=== PATIENT | male | born 1965 | race Caucasian/White ===

== ENCOUNTER 2018-12-14 18:29 | Emergency (ER) | payer SELFPAY ==
[2018-12-14 18:47] VITALS: BP 154/86; PULSE 69; TEMP 97.8; BMI 29.6
--- NOTE | 2018-12-14 19:41 | PDOC ---
Attending Attestation - HPI HPI: This patient is a 53 year old male with PMHx of HTN, NIDDM, HLD, who presents to ED with 3 weeks of epigastric pain. Patient was seen by his primary doctor on 12/05 and was given a prescription for Bentyl. Patient reports the Bentyl has not worked as he's been taking the medication after he eats. Patient states that he has had this pain before and gets it every year but it has never lasted this long before. Patient states the pain is cramp-like, localized in epigastric area, does not radiate, unaware of any exacerbating or alleviating factors, rates 9/10, associated with nausea and early satiety. Also endorses urinary frequency and slight dysuria, frontal headache for which he attributes to not eating or drinking well. He was seen here a yesterday for similar complaints. Denies any vomit, diarrhea, constipation, blood in stool, fevers, chills, chest pain, SOB, hematuria, syncope, pain radiating to the back, flank pain. PMD:Vahe Kearney MD PMH: see hpi PSH: none Meds: metformin, losartan, dicyclomine Allergies: nkda Social: denies 12/14/18 21:27 Patient has dup chart from 12/13/18 - Physicial Exam PE: GENERAL: Awake, alert, and fully oriented, in no acute distress HEAD: No signs of trauma EYES: PERRLA, EOMI, sclera anicteric, conjunctiva clear LUNGS: Breath sounds equal, clear to auscultation bilaterally. No wheezes, and no crackles HEART: Regular rate and rhythm, normal S1 and S2, no murmurs, rubs or gallops ABDOMEN: Soft, nontender, normoactive bowel sounds. No guarding, no rebound. No masses EXTREMITIES: Normal range of motion, no edema. No clubbing or cyanosis. No cords, erythema, or tenderness NEUROLOGICAL: Cranial nerves II through XII grossly intact. Normal speech, normal gait SKIN: Warm, Dry, normal turgor, no rashes or lesions noted. 12/14/18 21:26 <Theresa Lozano - Last Filed: 12/14/18 21:27> - Resident Resident Name: Renée Lorenzana - Medical Decision Making 12/14/18 23:16 Pt presents to the ED complaining of epigastric pain that has been persistent for three weeks. Denies chest pain, shortness of breath, nausea or vomiting. History of multiple prior episodes of similar pain which resolved spontaneously in the past. Labs show troponin of 0.06. Labs drawn yesterday under a different MR showed troponin of 0.05. Will check repeat troponin and admit if rising. Will discharge home with cardiology and GI follow up if decreasing. 12/14/18 23:21 <Lyric Driver - Last Filed: 12/14/18 23:22> Attestations - Attestations 12/14/18 21:26 Documentation prepared by Theresa Lozano, acting as medical imaging specialist for Lyric Driver MD. <Theresa Lozano - Last Filed: 12/14/18 21:27>
[2018-12-14] MEDS ORDERED: MAG HYDROX/AL HYDROX/SIMETH 30 ML UNIT-DOSE CUP PO ONE (19:59)
[2018-12-14] MEDS ORDERED: ONDANSETRON 4 MG/2 ML VIAL IVPB ONE (19:59)
[2018-12-14] MEDS ORDERED: ACETAMINOPHEN 1000 MG/100 ML VIAL (NON FORMULARY) IVPB ONE (19:59)
[2018-12-14] MEDS ORDERED: FAMOTIDINE 20 MG/50 ML IVPB 20 MG/50 ML MG IVPB ONE ×2 (19:59→20:13)
--- NOTE | 2018-12-14 19:59 | PDOC ---
History of Present Illness - General Chief Complaint: Pain, Acute Stated Complaint: NAUSEA/HEADACHE Time Seen by Provider: 12/14/18 19:23 History Source: Patient Exam Limitations: Language Barrier - History of Present Illness Travel History: No Initial Comments: 12/14/18 19:55 Pt is a 53yo M with PMH of HTN, NIDDM presenting to ED with 2 weeks of epigastric pain and nausea. Pt has had this pain before and gets it every year but it has never lasted this long before. Pt states the pain is in the epigastric area, does not radiate, 9/10, cramping, associated with nausea and early satiety. He feels the need to vomit to relieve the pain but he has not vomited. Also endorses urinary frequency and slight dysuria. Also is experiencing a frontal headache for which he attributes to not eating or drinking well. He denies diarrhea, constipation, blood in stool, fevers, chills , chest pain, SOB, hematuria, syncope, pain radiating to the back, flank pain. He was seen here a few days ago for similar complaints. PMD: [place] PMH: see hpi PSH: none Meds: metformin, losartan, dicyclomine Allergies: nkda Social: denies Past History - Past Medical History Allergies/Adverse Reactions: Allergies Allergy/AdvReac Type Severity Reaction Status Date / Time No Known Allergies Allergy Verified 12/14/18 18:43 Home Medications: Ambulatory Orders Losartan Potassium 100 mg PO DAILY 12/14/18 metFORMIN HCL [Metformin HCl] 500 mg PO BID 12/14/18 COPD: No HTN: Yes - Suicide/Smoking/Psychosocial Hx Smoking Status: No Smoking History: Never smoked Years of Tobacco Use: 0 Number of Cigarettes Smoked Daily: 0 Cigars Per Day: 0 Review of Systems - Review of Systems Constitutional: No: Chills, Fever, Weakness HEENTM: No: Symptoms Reported Respiratory: No: Cough, Shortness of Breath Cardiac (ROS): Yes: Lightheadedness. No: Chest Pain, Palpitations, Syncope ABD/GI: Yes: See HPI, Nausea, Abdominal cramping. No: Constipated, Diarrhea, Difficulty Swallowing, Rectal Bleeding, Vomiting, Tarry Stools : Yes: Dysuria, Frequency. No: Flank Pain, Hematuria, Incontinence, Urgency, Testicular Pain Musculoskeletal: No: Symptoms Reported Integumentary: No: Symptoms Reported Neurological: Yes: Headache. No: Numbness, Tingling, Tremors, Weakness *Physical Exam - Vital Signs Last Vital Signs Temp Pulse Resp BP Pulse Ox 97.8 F 69 19 154/86 98 12/14/18 18:43 03 18:43 12/14/18 18:43 12/14/18 18:43 12/14/18 18:43 - Physical Exam General Appearance: Yes: Nourished, Appropriately Dressed. No: Apparent Distress HEENT: positive: EOMI, [place], Pharynx Normal Neck: positive: Trachea midline, Supple. negative: Lymphadenopathy (R), Lymphadenopathy (L) Respiratory/Chest: positive: Lungs Clear, Normal Breath Sounds. negative: Crackles, Rales, Rhonchi, Stridor, Wheezing Cardiovascular: positive: Regular Rhythm, Regular Rate, S1, S2. negative: Edema , JVD, Murmur Vascular Pulses: Carotid (R): 2+, Carotid (L): 2+, Dorsalis-Pedis (R): 2+, Doralis-Pedis (L): 2+ Gastrointestinal/Abdominal: positive: Normal Bowel Sounds, Soft. negative: Distended, Guarding, Rebound, Tenderness Musculoskeletal: negative: CVA Tenderness (R), CVA Tenderness (L) Extremity: positive: Normal Capillary Refill, Normal Inspection Integumentary: positive: Normal Color, Dry, Warm Neurologic: positive: cleaning technician II-XII NML intact, Fully Oriented, Alert, Normal Mood/ Affect, Normal Response, Motor Strength 5/5 Moderate Sedation - Procedure Monitoring Vital Signs: Procedure Monitoring Vital Signs Temperature 97.8 F 12/14/18 18:43 Pulse Rate 69 12/14/18 18:43 Respiratory Rate 19 12/14/18 18:43 Blood Pressure 154/86 12/14/18 18:43 O2 Sat by Pulse Oximetry (%) 98 12/14/18 18:43 ED Treatment Course - LABORATORY CBC & Chemistry Diagram: 12/14/18 19:50 12/14/18 19:50 Medical Decision Making - Medical Decision Making 12/14/18 19:59 Pt is a 53yo M with PMH of HTN, NIDDM presenting to ED with 2 weeks of epigastric pain and nausea. Pt has had this pain before and gets it every year but it has never lasted this long before. Pt states the pain is in the epigastric area, does not radiate, 9/10, cramping, associated with nausea and early satiety. He feels the need to vomit to relieve the pain but he has not vomited. Also endorses urinary frequency and slight dysuria. Also is experiencing a frontal headache for which he attributes to not eating or drinking well. He denies diarrhea, constipation, blood in stool, fevers, chills , chest pain, SOB, hematuria, syncope, pain radiating to the back. He was seen here a few days ago for similar complaints. Vitals: wnl PE: No tenderness, no pulsatile mass Low suspicions for pancreatitis, cholecystitis, colitis, nephrolithiasis. Low suspicion for AAA, Dissection and PE given normal vital signs, no pulsatile mass, no tearing chest/back pain, no dyspnea, pain is similar to prior episodes. Will order trop and ekg given pt age, h/o dm and htn -cbc, cmp, lipase, trop -ekg -maalox, tylenol, pepcid, zofran. Labs significant for trop being 0.06. Pt states he was here 12/12 and has paperwork showing that he was although electronic record through this chart is not seen. Trop 12/12 was 0.05. Pt is denying chest pain, pleuritic chest pain, sob, leg swelling, dyspnea on exertion. Will repeat trop in 3 hours. EKG shows inverted t in lead 3 with inverted p. No other t wave inversions. NSR. No DAVID or depressions. Upon drawing repeat trop, pt states he was feeling better. Repeat trop 0.05. Pt not having chest pain and has not been having chest pains. Pain is similar to prior episodes and is just not getting better. However pt feels better now. Does not need admission to pursue troponin at this time. Will refer to cardiology. Will also refer to GI for symptoms. Pt understands return precautions. Will DC home. *DC/Admit/Observation/Transfer Diagnosis at time of Disposition: Epigastric pain - Discharge Dispostion Disposition: HOME Condition at time of disposition: Good Decision to Admit order: No - Referrals Referrals: Vahe Kearney MD [Non Staff, Medical] - Odette Shirley DO [Staff Physician] - Jarek Munoz MD [Staff Physician] - - Patient Instructions Printed Discharge Instructions: DI for Atypical Chest Pain, DI for Epigastric Pain Additional Instructions: You were seen in the emergency room for epigastric abdominal pain. This may be due to espogeal spasms. The lab tests show that an enzyme released by the heart is a little high. You need to see a car dumper operator helper. A referral was sent to Dr. Munoz . I highly suggest that you call and make an appointment. You should tell them that you were seen in the emergency room and you were referred to see a car dumper operator helper. Please remember to do this, it is important. You should also see a GI doctor (for the stomach). Dr. Shirley . Make sure you make an appointment with Dr. Peters this week. Come back to the emergency room if you start to develop chest pain, you feel short of breath, you break out into a sweat, you have pain in the chest that goes to your shoulders, you start vomiting blood or if any new concerning symptom develops. Thank you - Post Discharge Activity
[2018-12-14] MEDS ORDERED: SODIUM CHLORIDE 1,000 ML IV STA (20:00)
[2018-12-14 20:04] LABS: BASO % 0.5 % (0-2.0); EOS % 2.6 % (0-4.5); HEMATOCRIT 40.4 % (35.4-49); HEMOGLOBIN 14.4 GM/dL (11.7-16.9); LYMPH % 30.9 % (8-40); MCH 29.2 pg (25.7-33.7); MCHC 35.7 g/dl (32.0-35.9); MEAN CELL VOLUME 81.8 fl (80-96); MEAN PLT VOLUME 8.3 fl (7.5-11.1); PLATELET COUNT 280 K/MM3 (134-434); RBC 4.93 M/mm3 (4.00-5.60); WHITE BLOOD COUNT 5.8 K/mm3 (4.0-10.0)
[2018-12-14] MEDS ORDERED: MAG HYDROX/AL HYDROX/SIMETH 30 ML UNIT-DOSE CUP ONE (20:13)
[2018-12-14] MEDS ORDERED: ACETAMINOPHEN INJECTION 100 ML IVPB ONE (20:13)
[2018-12-14] MEDS ORDERED: ONDANSETRON 4 MG/2 ML VIAL ONE (20:13)
[2018-12-14 20:26] LABS: ALBUMIN 4.6 g/dl (3.4-5.0); ALK PHOS 112 U/L (45-117); ANION GAP 10 MMOL/L (8-16); BILIRUBIN,TOTAL 0.6 mg/dL (0.2-1); BLOOD UREA NITROGEN 11 mg/dL (7-18); CALCIUM 8.7 mg/dL (8.5-10.1); CHLORIDE 106 mmol/L (98-107); CO2 24 mmol/L (21-32); CREATININE 0.8 mg/dL (0.55-1.3); GLUCOSE,RANDOM 80 mg/dL (74-106); SGOT/AST 38 U/L (15-37); SGPT/ALT 58 U/L (13-61); SODIUM 140 mmol/L (136-145); TOT PROT 7.7 g/dl (6.4-8.2)
[2018-12-14 20:59] LABS: URINE APPEARANCE CLEAR; URINE BILIRUBIN NEGATIVE (<2.0 mg/dL); URINE COLOR LTYELLOW; URINE GLUCOSE (UA) NEGATIVE (NEGATIVE); URINE KETONE NEGATIVE (NEGATIVE); URINE LEUK ESTERASE NEGATIVE (NEGATIVE); URINE NITRITE NEGATIVE (NEGATIVE); URINE PROTEIN NEGATIVE (NEGATIVE); URINE UROBILINOGEN NEGATIVE mg/dL (0.2-1.0)
--- NOTE | 2018-12-17 13:51 | EKG ---
Test Reason : Blood Pressure : / mmHG Vent. Rate : 066 BPM Atrial Rate : 066 BPM P-R Int : 154 ms QRS Dur : 096 ms QT Int : 396 ms P-R-T Axes : 000 -12 000 degrees QTc Int : 415 ms NORMAL SINUS RHYTHM INCOMPLETE RIGHT BUNDLE BRANCH BLOCK INFERIOR INFARCT , AGE UNDETERMINED ABNORMAL ECG NO PREVIOUS ECGS AVAILABLE Confirmed by MD Ricardo, Anthony ([id number]) on 12/17/2018 1:51:34 PM Referred By: Confirmed By:Anthony Silva MD
== END 2018-12-15 00:41 | disposition home or self-care (01) ==
LOC: JER 18:29
PROC: 3E033GC Introduction of Other Therapeutic Substance into Peripheral Vein, Percutaneous Approach (ICD-10-PCS; principal; 2018-12-14)
PROC: 3E033GC Introduction of Other Therapeutic Substance into Peripheral Vein, Percutaneous Approach (ICD-10-PCS; 2018-12-14)
PROC: 3E033NZ Introduction of Analgesics, Hypnotics, Sedatives into Peripheral Vein, Percutaneous Approach (ICD-10-PCS; 2018-12-14)
DX: R10.13 Epigastric pain (principal); I10 Essential (primary) hypertension; E78.5 Hyperlipidemia, unspecified; E11.9 Type 2 diabetes mellitus without complications; Z79.84 Long term (current) use of oral hypoglycemic drugs
CPT/HCPCS: 36415; 80053; 81003; 83690; 84484; 85025; 93005; 93010; 99281-25; J0131; J7030

== ENCOUNTER 2022-06-16 17:14 | Emergency (ER) | payer SELFPAY ==
[2022-06-16 17:29] VITALS: RESP 18; BMI 29.9
[2022-06-16] MEDS ORDERED: ONDANSETRON 4 MG/2 ML VIAL IVPUSH ONE (18:50)
[2022-06-16] MEDS ORDERED: ONDANSETRON 4 MG/2 ML VIAL ONE (19:38)
[2022-06-16 21:07] LABS: BASO % 0.4 % (0-2.0); EOS % 2.1 % (0-4.5); HEMATOCRIT 40.9 % (35.4-49); HEMOGLOBIN 13.9 GM/dL (11.7-16.9); LYMPH % 17.7 % (8-40); MCH 27.8 pg (25.7-33.7); MEAN CELL VOLUME 81.6 fl (80-96); MEAN PLT VOLUME 9.5 fl (7.5-11.1); MONO % 10.1 % (3.8-10.2); NEUT % 69.7 % (42.8-82.8); PLATELET COUNT 252 10^3/uL (134-434); RBC 5.01 M/mm3 (4.00-5.60); RDW 13.2 % (11.9-15.9); WHITE BLOOD COUNT 8.3 K/mm3 (4.0-10.0)
[2022-06-16 21:29] LABS: CHLORIDE 106 mmol/L (98-107); SODIUM 141 mmol/L (136-145)
[2022-06-16 21:31] LABS: ALBUMIN 3.9 g/dl (3.4-5.0); ANION GAP 7 MMOL/L (8-16); BLOOD UREA NITROGEN 22.6 mg/dL (7-18); CALCIUM 8.7 mg/dL (8.5-10.1); CO2 29 mmol/L (21-32); GLUCOSE,RANDOM 85 mg/dL (74-106)
[2022-06-16 21:34] LABS: CREATININE 0.8 mg/dL (0.55-1.3); SGOT/AST 30 U/L (15-37); SGPT/ALT 45 U/L (13-61)
[2022-06-16 21:36] LABS: BILIRUBIN,TOTAL 0.6 mg/dL (0.2-1); TOT PROT 7.3 g/dl (6.4-8.2)
[2022-06-16 21:37] LABS: ALK PHOS 113 U/L (45-117)
[2022-06-16] MEDS ORDERED: ASPIRIN 81 MG CHEWABLE TABLETS PO ONE (21:44)
[2022-06-16] MEDS ORDERED: ASPIRIN 81 MG CHEWABLE TABLETS ONE (21:46)
[2022-06-16] MEDS ORDERED: CLOPIDOGREL BISULFATE 300 MG TABLET PO ONE (21:50)
[2022-06-16] MEDS ORDERED: ENOXAPARIN NA (PORCINE) 80 MG/0.8 ML DISP.SYRIN SQ ONE ×2 (21:51→21:53)
[2022-06-16] MEDS ORDERED: CLOPIDOGREL BISULFATE 300 MG TABLET ONE (21:53)
[2022-06-17] MEDS ORDERED: SODIUM CHLORIDE 0.9% 500 ML INFUS.BAG IV ONE
[2022-06-17] MEDS ORDERED: HEPARIN NA (PORCINE) 5,000 UNITS/ML 1ML VIAL IVPUSH PRN ×2 (00:01)
[2022-06-17] MEDS ORDERED: HEPARIN INFUSION - 25,000 UNITS/500 ML INFUS.BAG IVPB SCH (00:15)
[2022-06-17 00:17] VITALS: BP 145/78
[2022-06-17] MEDS ORDERED: HEPARIN INFUSION - 25,000 UNITS/500 ML INFUS.BAG IVPB ONE (00:20)
[2022-06-17] MEDS ORDERED: HEPARIN NA (PORCINE) 5,000 UNITS/ML 1ML VIAL ONE (00:20)
[2022-06-17 00:44] VITALS: PULSE 53; TEMP 98.6
== END 2022-06-17 00:46 | disposition short-term general hospital (02) ==
LOC: JER 17:14
PROC: 3E033GC Introduction of Other Therapeutic Substance into Peripheral Vein, Percutaneous Approach (ICD-10-PCS; principal; 2022-06-16)
PROC: 3E033GC Introduction of Other Therapeutic Substance into Peripheral Vein, Percutaneous Approach (ICD-10-PCS; 2022-06-16)
PROC: 3E033GC Introduction of Other Therapeutic Substance into Peripheral Vein, Percutaneous Approach (ICD-10-PCS; 2022-06-16)
PROC: 3E033GC Introduction of Other Therapeutic Substance into Peripheral Vein, Percutaneous Approach (ICD-10-PCS; 2022-06-16)
DX: R55 Syncope and collapse (principal)
CPT/HCPCS: 0241U-QW; 36415; 70450-TC; 71046-TC-FY; 72125-TC; 80053; 82962; 84484; 85025; 93005; 93010; 99285-25; J1644

== ENCOUNTER 2022-11-10 05:19 | Observation (INO) | payer OTHER ==
[2022-11-10 05:44] VITALS: BMI 28.1
[2022-11-10] MEDS ORDERED: SODIUM CHLORIDE 0.9% 500 ML INFUS.BAG IV ONE (06:29)
[2022-11-10 06:47] LABS: VENOUS BASE EXCESS -2.5 mmol/L (-2-2); VENOUS O2 SATURATION 83.8 % (70-80); VENOUS PH 7.368 (7.310-7.410)
[2022-11-10 06:50] LABS: BASO % 0.7 % (0-2.0); EOS % 6.1 % (0-4.5); HEMATOCRIT 42.2 % (35.4-49); HEMOGLOBIN 14.7 GM/dL (11.7-16.9); LYMPH % 23.5 % (8-40); MCH 26.6 pg (25.7-33.7); MCHC 34.8 g/dl (32.0-35.9); MEAN CELL VOLUME 76.6 fl (80-96); MEAN PLT VOLUME 9.6 fl (7.5-11.1); MONO % 8.9 % (3.8-10.2); NEUT % 60.8 % (42.8-82.8); PLATELET COUNT 232 10^3/uL (134-434); RBC 5.51 M/mm3 (4.00-5.60); RDW 13.2 % (11.9-15.9); WHITE BLOOD COUNT 6.5 K/mm3 (4.0-10.0)
[2022-11-10 07:16] LABS: BLOOD UREA NITROGEN 14.7 mg/dL (7-18)
[2022-11-10 07:19] LABS: CREATININE 0.9 mg/dL (0.55-1.3); PHOSPHOROUS 4.1 mg/dL (2.5-4.9)
[2022-11-10 07:20] LABS: TOT PROT 7.2 g/dl (6.4-8.2)
[2022-11-10] MEDS ORDERED: LACTATED RINGERS SOLUTION 1000 ML INFUS.BAG IV ONE (07:26)
[2022-11-10 09:53] LABS: URINE APPEARANCE CLEAR; URINE BILIRUBIN NEGATIVE (NEGATIVE); URINE COLOR YELLOW; URINE GLUCOSE (UA) 3+ (NEGATIVE); URINE KETONE 1+ (NEGATIVE); URINE LEUK ESTERASE NEGATIVE (NEGATIVE); URINE NITRITE NEGATIVE (NEGATIVE); URINE PROTEIN NEGATIVE (NEGATIVE); URINE UROBILINOGEN 0.2 mg/dL (0.2-1.0)
[2022-11-10] MEDS ORDERED: LOSARTAN POTASSIUM 50 MG TABLET ONE (13:51)
[2022-11-10] MEDS: LOSARTAN POTASSIUM 50 MG TABLET PO SCH (14:05)
[2022-11-10] MEDS ORDERED: CLOPIDOGREL BISULFATE 75 MG TABLET (FP) PO ONE (15:36)
[2022-11-10] MEDS ORDERED: ASPIRIN COATED 81 MG TABLET.EC ONE (16:11)
[2022-11-10] MEDS ORDERED: CLOPIDOGREL BISULFATE 75 MG TABLET (FP) ONE (16:11)
[2022-11-10] MEDS: ASPIRIN COATED 81 MG TABLET.EC PO SCH (16:14)
[2022-11-10] MEDS ORDERED: SODIUM CHLORIDE 1,000 ML IV SCH ×2 (18:15→18:22)
[2022-11-10] MEDS ORDERED: ATORVASTATIN CA 80 MG TABLET (FP) PO SCH (22:00)
[2022-11-11] MEDS: GABAPENTIN 300 MG CAPSULE PO SCH ×4 (00:33→23:44)
[2022-11-11] MEDS ORDERED: ATORVASTATIN CA 40 MG TABLET (FP) ONE (04:31)
[2022-11-11] MEDS ORDERED: GABAPENTIN 300 MG CAPSULE ONE ×4 (04:32→23:35)
[2022-11-11] MEDS: INSULIN SLIDING SCALE (NOVOLOG) 1 VIAL SQ SCH ×5 (04:43→23:44)
[2022-11-11 07:24] LABS: BASO % 0.9 % (0-2.0); EOS % 6.7 % (0-4.5); HEMATOCRIT 37.9 % (35.4-49); HEMOGLOBIN 13.1 GM/dL (11.7-16.9); LYMPH % 35.6 % (8-40); MCH 26.3 pg (25.7-33.7); MCHC 34.4 g/dl (32.0-35.9); MEAN CELL VOLUME 76.4 fl (80-96); MEAN PLT VOLUME 9.1 fl (7.5-11.1); MONO % 9.7 % (3.8-10.2); NEUT % 47.1 % (42.8-82.8); PLATELET COUNT 213 10^3/uL (134-434); RBC 4.96 M/mm3 (4.00-5.60); RDW 13.8 % (11.9-15.9); WHITE BLOOD COUNT 5.7 K/mm3 (4.0-10.0)
[2022-11-11 07:53] LABS: BLOOD UREA NITROGEN 13.6 mg/dL (7-18); CALCIUM 7.8 mg/dL (8.5-10.1); MAGNESIUM 1.8 mg/dL (1.8-2.4)
[2022-11-11 07:54] LABS: ALBUMIN 3.2 g/dl (3.4-5.0)
[2022-11-11 07:57] LABS: CREATININE 0.7 mg/dL (0.55-1.3); PHOSPHOROUS 2.9 mg/dL (2.5-4.9); TOT PROT 5.9 g/dl (6.4-8.2)
[2022-11-11] MEDS ORDERED: CLOPIDOGREL BISULFATE 75 MG TABLET (FP) ONE (09:42)
[2022-11-11] MEDS ORDERED: LOSARTAN POTASSIUM 50 MG TABLET ONE (09:42)
[2022-11-11] MEDS ORDERED: ASPIRIN COATED 81 MG TABLET.EC ONE (09:42)
[2022-11-11] MEDS: CLOPIDOGREL BISULFATE 75 MG TABLET (FP) PO SCH (10:15)
[2022-11-11] MEDS: ASPIRIN COATED 81 MG TABLET.EC PO SCH ×2 (10:15)
[2022-11-11] MEDS: LOSARTAN POTASSIUM 50 MG TABLET PO SCH (10:15)
[2022-11-11] MEDS: glyBURIDE 5 MG TABLET PO SCH ×2 (10:15→17:36)
[2022-11-11] MEDS ORDERED: SODIUM CHLORIDE 1,000 ML IV SCH (13:27)
[2022-11-11] MEDS ORDERED: DEXTROSE 50%-WATER - 25 GM/50 ML VIAL IVPUSH PRN (13:35)
[2022-11-11] MEDS ORDERED: LOSARTAN POTASSIUM 50 MG TABLET PO SCH (13:39)
[2022-11-11] MEDS: metFORMIN HCL 500 MG TABLET (FP) PO SCH (17:36)
[2022-11-11] MEDS ORDERED: metFORMIN HCL 500 MG TABLET (FP) ONE (17:38)
[2022-11-11] MEDS ORDERED: EZETIMIBE 10 MG TABLET (FP) PO SCH (22:00)
[2022-11-12] MEDS: GABAPENTIN 300 MG CAPSULE PO SCH (06:34)
[2022-11-12] MEDS: metFORMIN HCL 500 MG TABLET (FP) PO SCH (06:34)
[2022-11-12] MEDS: INSULIN SLIDING SCALE (NOVOLOG) 1 VIAL SQ SCH ×2 (06:35→10:51)
[2022-11-12 08:49] LABS: HEMATOCRIT 39.4 % (35.4-49); HEMOGLOBIN 13.5 GM/dL (11.7-16.9); MCH 26.2 pg (25.7-33.7); MCHC 34.3 g/dl (32.0-35.9); MEAN CELL VOLUME 76.4 fl (80-96); MEAN PLT VOLUME 9.6 fl (7.5-11.1); PLATELET COUNT 237 10^3/uL (134-434); RBC 5.16 M/mm3 (4.00-5.60); RDW 13.6 % (11.9-15.9); WHITE BLOOD COUNT 6.1 K/mm3 (4.0-10.0)
[2022-11-12 09:01] LABS: BLOOD UREA NITROGEN 10.7 mg/dL (7-18); CALCIUM 8.6 mg/dL (8.5-10.1)
[2022-11-12 09:05] LABS: CREATININE 0.8 mg/dL (0.55-1.3)
[2022-11-12] MEDS: ENOXAPARIN NA (PORCINE) 40 MG/0.4 ML DISP.SYRIN SQ SCH ×2 (09:51→09:58)
[2022-11-12] MEDS: ASPIRIN COATED 81 MG TABLET.EC PO SCH (09:52)
[2022-11-12] MEDS: glyBURIDE 5 MG TABLET PO SCH (09:52)
[2022-11-12] MEDS: CLOPIDOGREL BISULFATE 75 MG TABLET (FP) PO SCH (09:52)
[2022-11-12 10:38] VITALS: BP 134/79; PULSE 60; RESP 16; TEMP 97.8
== END 2022-11-12 11:10 | disposition home or self-care (01) ==
LOC: JER 05:19 → JERBED 08:21 → INTOOBSV 08:21 → UNDOADMOB 08:21 → JERBED 17:55 → J4S 11-12 05:02
PROVIDERS: ADMIT Internal Medicine; ATTEND Internal Medicine
PROC: 3E013VG Introduction of Insulin into Subcutaneous Tissue, Percutaneous Approach (ICD-10-PCS; principal; 2022-11-10)
PROC: 3E0337Z Introduction of Electrolytic and Water Balance Substance into Peripheral Vein, Percutaneous Approach (ICD-10-PCS; 2022-11-10)
DX: I25.10 Atherosclerotic heart disease of native coronary artery without angina pectoris (principal); I11.9 Hypertensive heart disease without heart failure; E11.40 Type 2 diabetes mellitus with diabetic neuropathy, unspecified; R35.89 Other polyuria; Z95.5 Presence of coronary angioplasty implant and graft; R53.1 Weakness; E78.5 Hyperlipidemia, unspecified; E11.65 Type 2 diabetes mellitus with hyperglycemia; Z95.1 Presence of aortocoronary bypass graft; I25.2 Old myocardial infarction
CPT/HCPCS: 0241U-QW; 36415; 71045-TC-FY; 80048; 80053; 81003; 82010; 82803; 82962; 83036; 83735; 84100; 84484; 85025; 85027; 87086; 93005; 93010; 96360; 96372; 99285-25; G0378

== ENCOUNTER 2022-11-29 22:36 | Emergency (ER) | payer OTHER ==
[2022-11-29 22:52] VITALS: BP 159/94; PULSE 65; RESP 18; TEMP 97.6; BMI 29.7
== END 2022-11-30 00:30 | disposition left against medical advice (07) ==
LOC: JER 22:36
DX: I45.10 Unspecified right bundle-branch block (principal)
CPT/HCPCS: 93005; 93010; 99283-25

== ENCOUNTER 2023-01-28 21:59 | Emergency (ER) | payer OTHER ==
[2023-01-28 22:02] VITALS: BP 168/84; PULSE 70; RESP 18; TEMP 98.3; BMI 29.9
[2023-01-28] MEDS ORDERED: ACETAMINOPHEN 325 MG TABLET (FP) PO ONE (23:32)
[2023-01-28] MEDS ORDERED: ACETAMINOPHEN 325 MG TABLET (FP) ONE (23:34)
[2023-01-29 00:32] LABS: BASO % 0.9 % (0-2.0); EOS % 8.2 % (0-4.5); HEMATOCRIT 35.4 % (35.4-49); HEMOGLOBIN 12.2 GM/dL (11.7-16.9); LYMPH % 30.3 % (8-40); MCH 27.8 pg (25.7-33.7); MCHC 34.5 g/dl (32.0-35.9); MEAN CELL VOLUME 80.5 fl (80-96); MEAN PLT VOLUME 8.3 fl (7.5-11.1); NEUT % 50.6 % (42.8-82.8); PLATELET COUNT 287 10^3/uL (134-434); RBC 4.41 M/mm3 (4.00-5.60); RDW 13.2 % (11.9-15.9); WHITE BLOOD COUNT 6.9 K/mm3 (4.0-10.0)
[2023-01-29 00:38] LABS: INR 0.97 (0.83-1.09); PROTHROMBIN TIME (PATIENT) 11.3 SEC (9.7-13.0)
[2023-01-29 01:20] LABS: ALBUMIN 3.8 g/dl (3.4-5.0); BLOOD UREA NITROGEN 23.5 mg/dL (7-18); CALCIUM 8.5 mg/dL (8.5-10.1)
[2023-01-29 01:25] LABS: BILIRUBIN,TOTAL 0.6 mg/dL (0.2-1); TOT PROT 7.4 g/dl (6.4-8.2)
[2023-01-29] MEDS ORDERED: CEPHALEXIN MONOHYDRATE 500 MG CAPSULE (UD) PO ONE (01:45)
[2023-01-29] MEDS ORDERED: CEPHALEXIN MONOHYDRATE 500 MG CAPSULE (UD) ONE (01:50)
== END 2023-01-29 01:51 | disposition home or self-care (01) ==
LOC: JERFT 21:59 → JER 21:59
DX: S80.11XA Contusion of right lower leg, initial encounter (principal); M79.661 Pain in right lower leg; W22.8XXA Striking against or struck by other objects, initial encounter; Y93.I9 Activity, other involving external motion
CPT/HCPCS: 36415; 73590-TC-RT-FY; 73610-TC-RT-FY; 73630-TC-RT-FY; 80053; 83605; 85025; 85610; 87040; 93971-TC; 99284-25